=== PATIENT | male | born 1965 | race Caucasian/White ===

== ENCOUNTER 2017-03-27 11:29 | Emergency (ER) | payer OTHER ==
[2017-03-27] MEDS ORDERED: Sodium Chloride 0.9% 1,000 ML IV ONE ×2 (12:32→13:40)
[2017-03-27] MEDS ORDERED: Sodium Chloride 0.9% 10 ML Syringe FLUSH PRN ×2 (12:32→13:40)
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
[2017-03-27 12:57] LABS: CHLORIDE,CL 101 mmol/L (98-107); SODIUM,NA 139 mmol/L (136-145)
[2017-03-27] MEDS ORDERED: Diphtheria,Pertussis(Acell),Tetanus Vaccine 0.5 ML SDV IM ONE (13:40)
[2017-03-27 14:06] VITALS: BP 118/79
== END 2017-03-27 14:13 ==
LOC: LL.ED 11:29
DX: S81.012A Laceration without foreign body, left knee, initial encounter (principal); R78.0 Finding of alcohol in blood; Z79.899 Other long term (current) drug therapy; Z87.891 Personal history of nicotine dependence; X58.XXXA Exposure to other specified factors, initial encounter
CPT/HCPCS: 36415; 73590; 80048; 85025; 90471; 90715; 96360; 99285; G0480; J7030